=== PATIENT | female | born 1970 | race Caucasian/White ===

== ENCOUNTER → 2017-12-15 09:25 | Outpatient (CLI) | payer BC, SELFPAY ==
--- NOTE | 2017-12-15 09:32 | XR_ITS ---
XR KUB CLINICAL INDICATION: ITS.REASON: R RENAL STONE ORDERING PHYSICIAN: Miguelangel Doty MD PATIENT AGE: 47 years COMPARISON: 09/17/2017 CT scan FINDINGS: There are at least 4 stones overlying the lower pole the right kidney measuring approximately 2 mm. There are multiple pelvic calcifications which are probably related to phleboliths. No recent exams are available for comparison. One cannot exclude the possibility of distal ureteral calculus based on this exam. IMPRESSION: 1. Right nephrolithiasis. 2. Multiple pelvic calcifications probably related to phleboliths
== END ==
PROVIDERS: PCP Family Medicine; Visit Provider Urology
DX: N20.0 Calculus of kidney (principal)
CPT/HCPCS: 74018

== ENCOUNTER → 2018-02-14 13:02 | Outpatient (CLI) | payer BC, SELFPAY ==
--- NOTE | 2018-02-14 13:07 | XR_ITS ---
XR KUB CLINICAL INDICATION: ITS.REASON: KIDNEY STONES ORDERING PHYSICIAN: Miguelangel Doty MD PATIENT AGE: 47 years COMPARISON: 12/15/2017 FINDINGS: Moderate amount stool overlies both renal outlines. A small density is noted over the L3 transverse process and could represent a summation artifact or an overlying stone measuring 3 mm. Multiple pelvic calcifications are present consistent with phleboliths. IMPRESSION: 1. Possible small stone overlying the right L3 transverse process versus summation density.
== END ==
PROVIDERS: PCP Family Medicine; Visit Provider Urology
DX: N20.0 Calculus of kidney (principal)
CPT/HCPCS: 74018

== ENCOUNTER → 2018-09-20 16:48 | Outpatient (CLI) | payer BC, SELFPAY ==
--- NOTE | 2018-09-20 16:54 | MM_ITS ---
MM Dig screening mamm BI w/CAD ORDERING PHYSICIAN : Laura Montiel PATIENT AGE: 48 years GENDER: Female COMPARISON: June 2017, September 2015, March 2011. INDICATION: ITS.REASON: ROUTINE SCREENINGBirth-control pills. No new complaints. Noncontributory family history. TECHNIQUE: Standard CC and MLO images were obtained. R2 CAD reviewed. FINDINGS: Again seen dense heterogeneous breast tissue bilaterally. No unique or dominant mass no suspicious appearing calcifications. This dense pattern definitely decreases sensitivity of mammography. Would note that ultrasound or other modalities can be a compliment/augment to mammography in breast of this character. Certainly if any palpable areas arise low threshold for pursuing ultrasound be encouraged. Prior films are helpful and he any significant new findings RIGHT BREAST:Stable dense lobular glandular pattern LEFT BREAST:No new areas of significant concern Additional axillary cc view of the left breast is very helpful to better confirm stability and speak against any significant new features. No appreciable change since last year with all images reviewed A few small punctate loosely grouped benign-appearing calcifications at the inferior medial left breast again noted and similar to previous studies & most likely reflecting adenosis.-Can be followed. IMPRESSION: No new findings of significant concern. Overall Stable mammogram Dense breast pattern decreases sensitivity mammography, but no significant new areas of concern are identified. If any palpable areas arise, low threshold for pursuing ultrasound suggested particularly in this dense breast Bilateral follow-up mammogram one year recommended. BI-RADS Category: 2 Benign Finding(s) RECOMMENDED FOLLOW-UP: 1YR 1 YEAR FOLLOW-UP (A letter has been sent to the patient regarding results of the study.)
== END ==
PROVIDERS: PCP Family Medicine; Visit Provider Student in an Organized Health Care Education/Training Program
DX: Z12.31 Encounter for screening mammogram for malignant neoplasm of breast (principal)
CPT/HCPCS: 77067

== ENCOUNTER → 2019-02-26 09:00 | Outpatient (CLI) | payer BC, SELFPAY ==
[2019-02-26 12:52] LABS: Chol/HDL Ratio 4.1 (1-3.5); Cholesterol 380 mg/dL (140-200); HDL Cholesterol 92 mg/dL (29-89); LDL Cholesterol 264 mg/dL (0-130); Thyroid Stimulating Hormone 0.59 uIU/ml (0.358-3.740); Triglycerides 121 mg/dL (30-200); VLDL Cholesterol 24 mg/dL (0-40)
[2019-02-28 14:27] LABS: Vitamin D 25 Hydroxy 72.8 ng/mL (30.0-100.0)
== END ==
PROVIDERS: Visit Provider Nurse Practitioner Family
DX: Z00.00 Encounter for general adult medical examination without abnormal findings (principal); E55.9 Vitamin D deficiency, unspecified
CPT/HCPCS: 36415; 80061; 82652; 84443

== ENCOUNTER → 2020-01-17 15:44 | Outpatient (CLI) | payer BC, SELFPAY ==
--- NOTE | 2020-01-17 | MM_ITS ---
PROCEDURE: MM DIG SCREENING MAMM BI W/CAD CLINICAL INDICATION: ROUTINE SCREENING There is no personal or family history of breast cancer there is no personal or family history of breast cancer. The patient is on control pills. COMPARISON: [facility] DIG MAMM-SCREEN [facility] from 10/15/2015 [facility] DIG MAMM-SCREEN [facility] W/CAD from 06/22/2017 [facility] MM Dig screening mamm BI w/CAD from 09/20/2018 TECHNIQUE: Standard CC and MLO images and 3D Tomosynthesis was obtained. R2 CAD reviewed. FINDINGS: There is a markedly and diffusely dense parenchymal pattern lessening the sensitivity of mammography. Josef images are most helpful in this type of dense breast parenchyma.. There is no new or suspicious lesion in either breast and no suspicious microcalcifications. There is a benign-appearing calcification left breast. IMPRESSION: Dense parenchymal pattern with no suspicious lesions seen BI-RAD Category: 2 Benign Finding(s) FOLLOW-UP: 1YR 1 Year Follow-up (A letter has been sent to the patient regarding results of the study.) Dictated by: Dr. Robert Ventura MD 01/21/2020 16:[address] Robert Ventura MD in [place] 01/21/2020 16:01
== END ==
PROVIDERS: PCP Family Medicine; Visit Provider Student in an Organized Health Care Education/Training Program
DX: Z12.31 Encounter for screening mammogram for malignant neoplasm of breast (principal)
CPT/HCPCS: 77063; 77067

== ENCOUNTER 2021-11-19 10:18 | Emergency (ER) | payer BC, SELFPAY ==
[2021-11-19 11:46] VITALS: BP 113/78; PULSE 93; RESP 16; TEMP 36.8; O2SAT 99; BMI 25.7
[2021-11-19 11:57] LABS: UTC Influenza A Antigen Negative (Negative); UTC Influenza B Antigen Negative (Negative)
[2021-11-19 11:58] LABS: UTC Strep Screen (Rapid) Negative (Negative)
--- NOTE | 2021-11-19 12:08 | HMH.EDUTC ---
[facility] – [place] Disposition Clinical Impression: Viral syndrome Disposition: Home, Self-Care Condition on Discharge: Good Instructions: DI for Viral Syndrome, DI for Fever (Symptom) -- Adult Additional Instructions: *Monitor Temp, Over the counter Motrin or Tylenol as directed/as needed Tylenol every 4 hours and Motrin every 6 hours (as long as your family doctor has told you that you can take it) for fever or pain. and straight to ER if unable to lower temp less than 101.0 after medication given *Warm salt water gargles may help to soothe the throat *Throat Lozenges *Warm fluids like tea with honey may help to soothe the throat *Sleep elevated *Humidifier/Vaporizer Your throat swab was sent for culture. Those results are typically sent to your primary care. Be sure to follow up in 2-3 days with your family doctor/primary care physician if no improvement so they can review those result and treat if necessary. If you don?t have a primary care doctor, I recommend you get one but in the mean time, you will have to return to a walk in clinic Follow up IMMEDIATELY for new or worsening symptoms or no Noticeable improvement over the next 48-72 hours. 911 for difficulty breathing or swallowing You were tested for today for COVID19 your test result should be back in the next 24-48 hours, you may check your results on the [facility] My Health Portal if you have trouble logging on you may call You was given a handout with instructions for Self Quarantine and Self isolation for while you wait on test results and what to do if they are positive If you are positive the Health Dept will be contacting you also Make sure to take your Vitamins Vit. C Vit D and Zinc if you can take them Referrals: Dante Benavides MD [Primary Care Provider] - As needed Forms: Work/School Release Time of Disposition: 12:24 Medical Decision Making - Onel Inquiry Pt receiving controlled substance: No Onel was queried for this patient: No Vital Signs: 11/19/21 11:46 11/19/21 12:38 Temperature 98.2 F 98.2 F Temperature Source Oral Pulse Rate 93 H Pulse Rate [Left] 93 H Respiratory Rate 16 16 Blood Pressure 113/78 Blood Pressure [Right Arm] 113/78 Blood Pressure Mean [Right Arm] 89 02 Sat by Pulse Oximetry 99 - Lab Data Lab results reviewed: Yes: I reviewed the patient's lab results. Lab Results 11/19/21 11:56: Strep Scn Rapid Clinic Negative 11/19/21 11:56: Influenza Type A Ag Negative, Influenza Type B Ag Negative Orders (Tests/Meds): ORDERS Category Date Time Status Covid-19 Nasal PCR ([facility]) Routine Lab 11/19/21 11:56 Received Strep Screen Confirmation Routine Micro 11/19/21 11:56 Received [facility] UTC HPI - General Stated complaint: sore throat,aches,headache Time Seen by Provider: 11/19/21 12:08 Mode of Arrival: Ambulatory Source of Information: Patient Limitations: No Limitations Description of Symptoms (Recalled from Triage Doc. by RN): pt c/o myalgia, fever, sore throat, and PARISH. HEENT Symptoms (Recalled from RN notes): Yes (sore throat and PARISH) Resp Symptoms (Recalled from RN notes): No Skin Symptoms (Recalled from RN notes): No MS Symptoms (Recalled from RN notes): No Functional Status (Recalled from RN notes): wnl - History of Present Illness Provider Complaint: Patient states that she has been having body aches, chills, fever, fatigue scratchy throat States that she was recently around someone that was positive for COVID States that now she is having symptoms so she wanted to get checked - Related Data Home Medications Medication Instructions Recorded Confirmed eletriptan 20 mg tablet 20 mg PO .prn tab 12/13/17 escitalopram oxalate 10 mg tablet 10 mg PO QDAY 12/13/17 escitalopram oxalate 20 mg tablet 20 mg PO HS tab 12/13/17 ibuprofen 800 mg tablet 800 mg PO ONCE 12/13/17 rosuvastatin 10 mg tablet 10 mg PO .m,w,f, tab 12/13/17 rosuvastatin 10 mg tablet 10 mg PO ONCE 12/13/17 Allergies Allergy/AdvReac Type
[2021-11-19 12:38] VITALS: BP 113/78; PULSE 93; RESP 16; TEMP 36.8
== END 2021-11-19 12:39 | disposition home or self-care (01) ==
PROVIDERS: Emergency Provider Nurse Practitioner; PCP Family Medicine
DX: B34.9 Viral infection, unspecified (principal); J02.9 Acute pharyngitis, unspecified; Z20.822 Contact with and (suspected) exposure to COVID-19
CPT/HCPCS: 87804; 87880; 99203; C9803; G0463; U0003; U0005

== ENCOUNTER → 2021-11-26 14:18 | Outpatient (CLI) | payer BC, SELFPAY ==
[2021-11-26 14:56] LABS: Adenovirus,PCR Not Detected (NotDetected); Coronavirus NL63 Not Detected (NotDetected); Coronovirus HKU1,PCR Not Detected (NotDetected)
[2021-11-26 14:57] LABS: Bordetella Pertussis Not Detected (NotDetected); Chlamydophila Pneumoniae, PCR Not Detected (NotDetected); Coronavirus 229E Not Detected (NotDetected); Coronavirus OC43 Not Detected (NotDetected); Human Metapneumovirus Not Detected (NotDetected); Influenza A, PCR Not Detected (NotDetected); Influenza AH1, 2009 Not Detected (NotDetected); Influenza AH1, PCR Not Detected (NotDetected); Influenza AH3,PCR Not Detected (NotDetected); Influenza B, PCR Not Detected (NotDetected); Mycoplasma Pneumoniae, PCR Not Detected (NotDetected); Parainfluenza 1, PCR Not Detected (NotDetected); Parainfluenza 2, PCR Not Detected (NotDetected); Parainfluenza 3, PCR Not Detected (NotDetected); Parainfluenza 4, PCR Not Detected (NotDetected); Respiratory Syncytial Virus Not Detected (NotDetected); Rhinovirus/Enterovirus Not Detected (NotDetected)
[2021-11-26 15:19] LABS: Basophils # 0.2 K/mm3 (0-0.2); Basophils % 1.7 % (0.1-2.0); Eosinophils # 0.5 K/mm3 (0.0-0.4); Eosinophils % 4.6 % (0.1-12.0); Hematocrit 42.5 % (37.0-47.0); Hemoglobin 13.1 g/dL (12.2-16.2); Lymphocytes # 3.7 K/mm3 (0.7-4.5); Lymphocytes % 35.9 % (10-50); Mean Corpuscular HGB Conc 30.9 g/dL (31.8-35.4); Mean Corpuscular Hemoglobin 29.9 pg (27.0-31.2); Mean Corpuscular Volume 96.9 fl (81-99); Monocytes # 0.8 K/mm3 (0.1-1.0); Neutrophils # 5.1 K/mm3 (1.8-7.8); Neutrophils % 49.9 % (37.0-80.0); Platelet Count 525 K/mm3 (142-424); Red Blood Count 4.38 M/mm3 (4.20-5.40); Red Cell Distribution Width 13.9 % (11.5-17.5); White Blood Count 10.2 K/mm3 (4.8-10.8)
[2021-11-26 15:52] LABS: Chloride 103 mmol/L (98-107); Sodium 135 mmol/L (136-145)
[2021-11-26 15:55] LABS: Alanine Aminotransferase 36 U/L (12-78); Alkaline Phosphatase 57 U/L (38-126); Aspartate Amino Transferase 45 U/L (14-36); Bilirubin,Total 0.2 mg/dl (0.2-1.3); Blood Urea Nitrogen 18 mg/dl (7-17); Carbon Dioxide 29 mmol/L (22.0-30.0); Estimated Glomerular Filt Rate 106 ml/min (>60); GFR (African American) 129 ML/MIN (>60)
[2021-11-26 16:01] LABS: Erythrocyte Sedimentation Rate 14 mm/hr (0-20)
[2021-11-26 16:09] LABS: Anion Gap 6.8 mEq/L (5-15); Potassium 3.8 mmoL/L (3.5-5.1)
[2021-11-26 16:12] LABS: Albumin Level 3.5 g/dl (3.5-5.0); Albumin/Globulin Ratio 1.3 (1.1-1.8); Calcium 8.9 mg/dl (8.4-10.2); Globulin 2.7 g/dL (1.3-3.2); Glucose 114 mg/dl (74-100); Total Protein,Serum 6.2 g/dl (6.3-8.2)
[2021-11-28 13:19] LABS: EBV Ab VCA, IgG >600.0 U/mL (0.0-17.9); EBV Ab VCA, IgM <36.0 U/mL (0.0-35.9)
== END ==
PROVIDERS: PCP Family Medicine; Visit Provider Nurse Practitioner Family
DX: J02.9 Acute pharyngitis, unspecified (principal); R52 Pain, unspecified; R50.9 Fever, unspecified
CPT/HCPCS: 36415; 80053; 85025; 85651; 86664; 86665; 87486; 87581; 87632; 87798

== ENCOUNTER → 2023-11-18 16:03 | Outpatient (CLI) | payer BC, SELFPAY ==
[2023-11-18 18:19] LABS: Free T4 (Free Thyroxine) 2.78 ng/dl (0.78-2.19)
[2023-11-18 18:33] LABS: Thyroid Stimulating Hormone < 0.02 uIU/mL (0.465-4.68)
== END ==
LOC: LAB 16:05
PROVIDERS: PCP Family Medicine; Visit Provider Internal Medicine Endocrinology, Diabetes & Metabolism
DX: E05.90 Thyrotoxicosis, unspecified without thyrotoxic crisis or storm (principal)
CPT/HCPCS: 36415; 84439; 84443

== ENCOUNTER 2024-01-09 15:25 | Outpatient (CLI) | payer BC, SELFPAY ==
[2024-01-09 17:26] LABS: Thyroid Stimulating Hormone < 0.02 uIU/mL (0.465-4.68)
[2024-01-10 08:21] LABS: Triiodothyronine (T3) Free 3.7 pg/mL (2.0-4.4)
[2024-01-12 09:47] LABS: Thyroid Stimulating Immunoglob 1.13 IU/L (0.00-0.55)
== END 2024-01-09 23:59 ==
LOC: LAB 15:27
PROVIDERS: PCP Family Medicine; Visit Provider Internal Medicine Endocrinology, Diabetes & Metabolism
DX: E05.90 Thyrotoxicosis, unspecified without thyrotoxic crisis or storm (principal)
CPT/HCPCS: 36415; 84439; 84443; 84445; 84481